=== PATIENT | female | born 1980 | race Caucasian/White ===

== ENCOUNTER 2018-01-16 09:12 | Emergency (ER) | payer OTHER ==
[2018-01-16] MEDS ORDERED: Famotidine IV* 10 MG/ML 2 ML (20 mg) IV ONE (09:21)
[2018-01-16] MEDS ORDERED: diPHENhydraMINE IV* 50 MG/ML 1 ml VIAL (BENADRYL) IV ONE (09:21)
[2018-01-16] MEDS ORDERED: methylPREDNISolone 125 MG* 2 ML VIAL IV ONE (09:21)
[2018-01-16 11:49] VITALS: BP 123/75
--- NOTE | 2018-01-16 12:08 | ED ---
Abner Marquez Stephanie, scribed for Lico Kwon MD on 01/16/18 at 0939 . Allergic Reaction/Systemic - HPI Summary HPI Summary: The pt is a 37 y/o F presenting to the ED with c/o allergic reaction that began at 09:15 today. The pt states she was driving to work when she began to feel hot and flushed. Symptoms include erythema over chest and erythematous, itchy lips. The pt states she is able to swallow. The pt denies any known allergies. - History of Current Complaint Chief Complaint: EDAllergicReaction Time Seen by Provider: 01/16/18 09:18 Hx Obtained From: Patient Hx Last Menstrual Period: does not get Onset/Duration: Sudden Onset, Started minutes ago - 30, Still Present Timing: Constant Severity Currently: Mild Pain Intensity: 0 Pain Scale Used: 0-10 Numeric Location: Discrete @ - chest and lips/face Aggravating Factor(s): Nothing Alleviating Factor(s): Nothing Associated Signs And Symptoms: Positive: Other: - erythema over chest and lips, itchy lips - Allergies/Home Medications Allergies/Adverse Reactions: Allergies Allergy/AdvReac Type Severity Reaction Status Date / Time No Known Allergies Allergy Verified 06/08/16 13:41 PMH/Surg Hx/FS Hx/Imm Hx Sensory History: Denies: Hx Legally Blind EENT History: Denies: Hx Deafness Neurological History: Reports: Hx Migraine Psychiatric History: Reports: Hx Anxiety, Hx Depression, Other Psychiatric Issues/Disorders - OCD Denies: Hx Inpatient Treatment, Hx of Violent Episodes Against Others - Surgical History Surgery Procedure, Year, and Place: NONE - Immunization History Date of Tetanus Vaccine: unknown Infectious Disease History: No Infectious Disease History: Denies: Traveled Outside the [place] in Last 30 Days - Family History Known Family History: Positive: Hypertension - Social History Occupation: Employed Part-time Lives: With Family Alcohol Use: None Hx Substance Use: No Substance Use Type: Reports: None Substance Use Comment - Amount & Last Used: today Hx Tobacco Use: Yes Smoking Status (MU): Light Every Day Tobacco Smoker Have You Smoked in the Last Year: Yes Review of Systems Positive: Other - feeling hot and "flushed". Negative: Fever Positive: Other - itchy lips Positive: Rash - erythema over chest and lips All Other Systems Reviewed And Are Negative: Yes Physical Exam - Summary Physical Exam Summary: General: well-appearing, no pain distress Skin: warm, dry, erythematous in upper chest and face Head: normal Eyes: EOMI, PEGGY ENT: normal, oral pharynx open Neck: supple, nontender Respiratory: CTA, breath sounds present Cardiovascular: RRR Abdomen: soft, nontender Bowel: present Musculoskeletal: normal, strength/ROM intact Neurological: normal, sensory/motor intact, A&O x3 Psychological: affect/mood appropriate Triage Information Reviewed: Yes Vital Signs On Initial Exam: Initial Vitals Temp Pulse Resp BP Pulse Ox 97.9 F 76 18 141/86 98 01/16/18 09:14 01/16/18 09:14 01/16/18 09:14 01/16/18 09:14 01/16/18 09:14 Vital Signs Reviewed: Yes Diagnostics - Vital Signs Vital Signs Temp Pulse Resp BP Pulse Ox 01/16/18 09:14 97.9 F 76 18 141/86 98 - Laboratory Lab Statement: Any lab studies that have been ordered have been reviewed, and results considered in the medical decision making process. Re-Evaluation - Re-Evaluation First Eval Re-Evaluation Time: 11:27 Change: Improved - The pt's rash has resolved. ED physician has discussed discharge plan with the pt and she agrees with the discharge plan. Allergic Reaction Course/Dx - Course Course Of Treatment: BP noted and advised to follow up with PCP. ALLERGIC REACTION IMPROVED IN ED. - Diagnoses Provider Diagnoses: Elevated BP without diagnosis of hypertension, Allergic reaction Discharge - Sign-Out/Discharge Documenting (check all that apply): Discharge - Discharge Plan Condition: Stable Disposition: HOME Prescriptions: Famotidine TAB* [Pepcid 20 MG TAB*] 20 mg PO BID PRN #8 tab PRN Reason: Allergy Symptoms predniSONE TAB* [Deltasone TAB*] 40 mg PO DAILY PRN #8 tab PRN Reason: Allergy Symptoms Patient Education Materials: General Allergic Reaction (ED) Referrals: Mehul Frazier MD [Primary Care Provider] - Additional Instructions: FOLLOW UP WITH YOUR DOCTOR. TAKE BENADRYL 25MG EVERY 4 HOURS OR 50MG EVERY 6 HOURS NEEDED. TAKE PEPCID 20MG TWICE A DAY NEEDED. TAKE PREDNISONE DIRECTED NEEDED. RETURN TO THE EMERGENCY DEPARTMENT FOR ANY WORSENING OF YOUR CONDITION OR QUESTIONS OR CONCERNS. YOUR BLOOD PRESSURE WAS ELEVATED TODAY; FOLLOW UP WITH YOUR PRIMARY CARE DOCTOR WITHIN ONE WEEK. - Billing Disposition and Condition Condition: STABLE Disposition: HOME The documentation as recorded by the Abner torres Stephanie accurately reflects the service I personally performed and the decisions made by me, Lico Kwon MD.
== END 2018-01-16 11:48 | disposition home or self-care (01) ==
LOC: ED 09:12
DX: T78.40XA Allergy, unspecified, initial encounter (principal); R03.0 Elevated blood-pressure reading, without diagnosis of hypertension; X58.XXXA Exposure to other specified factors, initial encounter
CPT/HCPCS: 96374; 96375; 99282; J1200; J2930

== ENCOUNTER 2018-08-13 08:17 | Emergency (ER) | payer OTHER ==
[2018-08-13] MEDS ORDERED: Ketorolac INJ* 30 MG/ML 1 ML VIAL IM ONE (08:40)
--- NOTE | 2018-08-13 08:45 | UC ---
Abdominal Pain Female HPI - HPI Summary HPI Summary: The patient is a 38-year-old female that has had right flank pain for approximately a month. Initially the pain was intermittent. 2 weeks ago [facility] went to [facility]. She was concerned she had a UTI. She states that her urinalysis was normal. She states that she also had a pelvic exam which showed no cause for her symptoms. Last night her right flank pain became more intense and has been constant. Her pain currently as 7 out of 10. She has had some nausea with this. She has some dysuria urgency and frequency. She denies any history of kidney infection or kidney stone. She had some mild relief with ibuprofen last night. - History of Current Complaint Chief Complaint: UCAbdominalPain Stated Complaint: PAIN ON SIDE Time Seen by Provider: 08/13/18 08:34 Hx Obtained From: Patient Hx Last Menstrual Period: does not get Onset/Duration: Gradual Onset, Lasting Weeks Timing: Intermittent Episodes Lasting: - hours Severity Initially: Moderate Severity Currently: Moderate Pain Intensity: 7 Pain Scale Used: 0-10 Numeric Location: Other - right flank Character: Colicy, Sharp Aggravating Factor(s): Nothing Alleviating Factor(s): OTC Analgesics Associated Signs and Symptoms: Positive: Urinary Symptoms. Negative: Diaphoresis, Fever, Cough, Chest Pain, Dizzy, Back Pain, Constipation, Blood in Stool, Decreased Appetite, Vaginal Bleeding, Vaginal Discharge, Nausea, Vomiting , Diarrhea Allergies/Adverse Reactions: Allergies Allergy/AdvReac Type Severity Reaction Status Date / Time No Known Allergies Allergy Verified 08/13/18 08:28 PMH/Surg Hx/FS Hx/Imm Hx Previously Healthy: Yes - Surgical History Surgical History: None Surgery Procedure, Year, and Place: NONE - Family History Known Family History: Positive: Hypertension - Social History Alcohol Use: Weekly Substance Use Type: None Substance Use Comment - Amount & Last Used: today Smoking Status (MU): Former Smoker Type: Cigarettes Have You Smoked in the Last Year: Yes Household Exposure Type: Cigarettes - Immunization History Most Recent Influenza Vaccination: Once before, unsure when Most Recent Tetanus Shot: Unsure Most Recent Pneumonia Vaccination: Never Review of Systems Constitutional: Negative Skin: Negative Eyes: Negative ENT: Negative Respiratory: Negative Cardiovascular: Negative Gastrointestinal: Nausea Genitourinary: Dysuria, Frequency, Urgency Motor: Negative Neurovascular: Negative Musculoskeletal: Negative Neurological: Negative Psychological: Negative All Other Systems Reviewed And Are Negative: Yes Physical Exam Triage Information Reviewed: Yes Appearance: Well-Appearing, No Pain Distress, Well-Nourished Vital Signs: Initial Vital Signs Temp 97.6 F 08/13/18 08:24 Pulse 96 08/13/18 08:24 Resp 18 08/13/18 08:24 BP 117/80 08/13/18 08:24 Pulse Ox 100 08/13/18 08:24 Vital Signs Reviewed: Yes Eyes: Positive: Conjunctiva Clear ENT: Positive: Hearing grossly normal. Negative: Nasal congestion, Nasal drainage, Trismus, Muffled voice, Hoarse voice Neck: Positive: Supple Respiratory: Positive: Lungs clear, Normal breath sounds, No respiratory distress, No accessory muscle use Cardiovascular: Positive: RRR, No Murmur Abdomen Description: Positive: Nontender, No Organomegaly, Soft, CVA Tenderness (R). Negative: CVA Tenderness (L) Bowel Sounds: Positive: Present Musculoskeletal: Positive: ROM Intact, No Edema Neurological: Positive: Alert Psychological Exam: Normal Skin Exam: Normal Diagnostics - Laboratory Diagnostic Studies Completed/Ordered: UA ++leuks, +++RBCs, +nitrite - Radiology No standard instances Radiology Interpretation Completed By: Radiologist Summary of Radiographic Findings: MILD STRANDING OF THE PERINEPHRIC FAT ON THE RIGHT WITH A 0.3 CM DISTAL URETERAL CALCULUS. VERSUS PELVIC VASCULAR CALCIFICATION. THERE IS NO APPRECIABLE HYDRONEPHROSIS. u/s:3 ML POST VOID RESIDUAL. BILATERAL URETERAL JETS ARE IDENTIFIED Abd Pain Female Course/Dx - Course Course Of Treatment: After the CT results were available I contacted Dr. Hathaway. He reviewed the CT. I informed him of the patient's UA results. He suggested the following. 1) give at least 2 L of IV fluids in the [facility].2) give 2 g of Rocephin IV.3) check an ultrasound to assure she has right uterine jets. Discharge on oral antibiotics - Differential Dx/Diagnosis Provider Diagnoses: pyelonephritis. ? kidney stone - Physician Notification/Consults Discussed Care of Patient With: Bo Hathaway - see orders Discharge - Sign-Out/Discharge Documenting (check all that apply): Patient Departure All imaging exams completed and their final reports reviewed: Yes - Discharge Plan Condition: Stable Disposition: HOME Patient Education Materials: Kidney Infection (ED), Kidney Stones (ED) Referrals: Mehul Frazier MD [Primary Care Provider] - 2 Days Additional Instructions: I suspect a kidney infection although a small stone is not ruled out TO ER FOR increased pain fever vomiting if not better in 48 hours - Billing Disposition and Condition Condition: STABLE Disposition: Home
--- NOTE | 2018-08-13 09:48 | RAD ---
CLINICAL HISTORY: right flank pain and hematuria COMPARISON: None TECHNIQUE: Multiple contiguous axial CT scans were obtained of the abdomen and pelvis after the administration of intravenous contrast. Coronal and sagittal multiplanar reformations are submitted for review. FINDINGS: LUNG BASES: The lung bases are clear. LIVER: The liver is normal in shape, size, contour, and attenuation. BILE DUCTS: There is no intrahepatic or extrahepatic biliary dilatation. GALLBLADDER: The gallbladder is normal, without pericholecystic inflammatory change. PANCREAS: The pancreas is normal, without mass or ductal dilatation. SPLEEN: Normal in size and appearance. UPPER GI TRACT: Evaluation of the gastrointestinal tract is limited by incomplete gastric distention. The upper GI tract is unremarkable. SMALL BOWEL AND MESENTERY: The small bowel is normal in contour, course, and caliber. There is no obstruction or dilatation. COLON: The colon is normal in contour, course, caliber. There is no pericolonic inflammatory change. ADRENALS: Normal bilaterally. KIDNEYS: There is mild stranding of the perinephric fat on the right. Additionally, there is a rounded 0.3 cm calculus of the right hemipelvis. Its relationship to the ureter is indeterminate. There is no appreciable hydronephrosis. BLADDER: The bladder is smooth in contour. PELVIC ORGANS: The uterus and adnexa are grossly normal for technique. AORTA: The aorta is normal. IVC: Unremarkable LYMPH NODES: There is no lymphadenopathy by size criteria. ABDOMINAL WALL: There is no evidence for abdominal wall hernia. BONES AND SOFT TISSUES: There is a limbus vertebral body versus an apophysis of L5. OTHER: None IMPRESSION: MILD STRANDING OF THE PERINEPHRIC FAT ON THE RIGHT WITH A 0.3 CM DISTAL URETERAL CALCULUS VERSUS PELVIC VASCULAR CALCIFICATION. THERE IS NO APPRECIABLE HYDRONEPHROSIS.
[2018-08-13] MEDS ORDERED: cefTRIAXone VIAL(*) 2,000 MG in NS 0.9% 50 ML* 50 ML IVPB ONE (10:14)
[2018-08-13] MEDS ORDERED: cefTRIAXone VIAL(*) 1,000 MG VIAL ONE (10:56)
[2018-08-13] MEDS ORDERED: NS 0.9% 1000 ML* 1,000 ML BOLUS ONE (11:32)
[2018-08-13 12:26] VITALS: BP 132/71
--- NOTE | 2018-08-13 12:30 | RAD ---
HISTORY: ? stone right UVJ COMPARISONS: None TECHNIQUE: Multiple transverse and longitudinal ultrasound images were obtained of the bladder using grayscale and color Doppler imaging. FINDINGS: BLADDER: The bladder is smooth in contour. Bilateral ureteral jets are identified. The prevoid bladder volume is 287 milliliters.. The postvoid bladder volume is 3 milliliters. AORTA AND IVC: No images are submitted of the vasculature. RETROPERITONEUM: Unremarkable. OTHER: Single longitudinal images of the kidneys are unremarkable bilaterally IMPRESSION: 3 ML POST VOID RESIDUAL. BILATERAL URETERAL JETS ARE IDENTIFIED.
[2018-08-13 16:30] LABS: ABS Basophils 0 10^3/ul (0-0.2); ABS Eosinophils 0 10^3/ul (0-0.6); ABS Lymphocytes 1.4 10^3/ul (1.0-4.8); ABS Monocytes 0.8 10^3/ul (0-0.8); ABS Neutrophils 7.2 10^3/ul (1.5-7.7); ABS Nucleated RBC 0 10^3/ul; Eosinophil % 0.2 % (0-6); Hematocrit 38 % (35-47); Hemoglobin 13.4 g/dl (12.0-16.0); Lymphocyte % 14.9 % (25-47); Mean Corpuscular HGB Conc 36 g/dl (31-36); Mean Corpuscular Hemoglobin 32 pg (27-31); Mean Corpuscular Volume 91 fL (80-97); Mean Platelet Volume 9.2 um3 (7.4-10.4); Nucleated Red Blood Cells % 0.1; Platelet Count 270 10^3/ul (150-450); Red Blood Count 4.13 10^6/ul (4.00-5.40); Red Cell Distribution Width 13 % (10.5-15); White Blood Count 9.5 10^3/ul (3.5-10.8)
== END 2018-08-13 13:05 | disposition home or self-care (01) ==
LOC: UCEAST 08:17
DX: N10 Acute pyelonephritis (principal); Z87.891 Personal history of nicotine dependence
CPT/HCPCS: 36415; 74176; 76857; 80053; 81003; 84702; 85025; 87077; 87086; 87186; 96360; 96361; 96372; 96376; 99212; G0463; J0696; J1885

== ENCOUNTER 2019-10-20 12:10 | Emergency (ER) | payer OTHER ==
[2019-10-20 12:29] VITALS: BP 138/85
--- NOTE | 2019-10-20 12:49 | UC ---
Throat Pain/Nasal Daniel HPI - HPI Summary HPI Summary: 39 yo female presents with sore throat. She tells me that for the last 5 days has had a sore throat that is painful to swallow. Has been taking tylenol OTC with no relief. Does have some post nasal drip. Denies fever, chills, sinus symptoms, cough, sob, rash, n/v. She is eating, drinking, and tolerating po well. - History of Current Complaint Chief Complaint: UCGeneralIllness Stated Complaint: SORE THROAT Time Seen by Provider: 10/20/19 12:48 Hx Obtained From: Patient Hx Last Menstrual Period: does not get Onset/Duration: Gradual Onset Severity: Moderate Pain Intensity: 5 Pain Scale Used: 0-10 Numeric - Allergies/Home Medications Allergies/Adverse Reactions: Allergies Allergy/AdvReac Type Severity Reaction Status Date / Time No Known Allergies Allergy Verified 10/20/19 12:26 PMH/Surg Hx/FS Hx/Imm Hx Psychological History: Anxiety, Depression - Surgical History Surgical History: None Surgery Procedure, Year, and Place: NONE - Family History Known Family History: Positive: Hypertension - Social History Lives: With Family Alcohol Use: Weekly Substance Use Type: None Substance Use Comment - Amount & Last Used: today Smoking Status (MU): Former Smoker Type: Cigarettes Have You Smoked in the Last Year: Yes Household Exposure Type: Cigarettes - Immunization History Most Recent Influenza Vaccination: Once before, unsure when Most Recent Tetanus Shot: Unsure Most Recent Pneumonia Vaccination: Never Review of Systems All Other Systems Reviewed And Are Negative: No Constitutional: Positive: Negative Skin: Positive: Negative Eyes: Positive: Negative ENT: Positive: Sore Throat Respiratory: Positive: Negative Cardiovascular: Positive: Negative Neurological: Positive: Negative Psychological: Positive: Negative Physical Exam - Summary Physical Exam Summary: GENERAL: NAD. WDWN. No pain distress. SKIN: No rashes, sores, lesions, or open wounds. HEENT: Head: AT/NC Eyes: EOM intact. Conjunctiva clear without inflammation or discharge. Ears: Hearing grossly normal. TMs intact, no bulging, erythema, or edema. Nose: Nasal mucosa pink and moist. NTTP maxillary and frontal sinus. Throat: Posterior oropharynx without exudates, erythema, or tonsillar enlargement. Uvula midline. NECK: Supple. Nontender. No lymphadenopathy. CHEST: CTAB. No accessory muscle use. Breathing comfortably and in no distress. CV: RRR. Pulses intact. Cap refill <2seconds NEURO: Alert. PSYCH: Age appropriate behavior. Triage Information Reviewed: Yes Vital Signs: Initial Vital Signs Temp 98 F 10/20/19 12:23 Pulse 73 10/20/19 12:23 Resp 16 10/20/19 12:23 BP 138/85 10/20/19 12:23 Pulse Ox 100 10/20/19 12:23 Laboratory Tests 10/20/19 12:44 Group A Strep Rapid Negative Vital Signs Reviewed: Yes Throat Pain/Nasal Course/Dx - Course Course Of Treatment: POC strep negative and exam WNL. Suspect viral sore throat - Differential Dx/Diagnosis Provider Diagnosis: Sore throat Discharge ED - Sign-Out/Discharge Documenting (check all that apply): Patient Departure All imaging exams completed and their final reports reviewed: No Studies - Discharge Plan Condition: Stable Disposition: HOME Prescriptions: Lidocaine 2% VISCOUS* [Xylocaine 2% Viscous*] 15 ml SWISH SWAL QID #250 ml Loratadine [Claritin] 10 mg PO DAILY #14 tablet Patient Education Materials: Pharyngitis (ED) Referrals: Mehul Frazier MD [Primary Care Provider] - Additional Instructions: If you develop a fever, shortness of breath, chest pain, new or worsening symptoms - please call your PCP or go to the ED immediately. Your blood pressure was high at todays visit. Please see your primary provider within 4 weeks for recheck and re-evaluation. Your symptoms are likely from a viral infection. Viral infections do not respond to antibiotics and are limited to the treatment of symptoms. Viral infections typically run their course in 7-10 days. Drink plenty of fluids, especially if you are running any fever. Use salt water gargles several times a day. Take over the counter acetaminophen (Tylenol) or ibuprofen (Advil, Motrin) according to directions as needed for pain or fever. You may also use Chloraseptic spray or Cepacol lonzenges according to directions which contain a numbing medication and can provide some temporary relief from a sore throat. Return here or follow up with your primary care provider in 7 days if symptoms persist. - Billing Disposition and Condition Condition: STABLE Disposition: Home
== END 2019-10-20 12:58 | disposition home or self-care (01) ==
LOC: UCEAST 12:10
DX: J02.9 Acute pharyngitis, unspecified (principal); Z87.891 Personal history of nicotine dependence
CPT/HCPCS: 87651; 99212; G0463